=== PATIENT | female | born 1955 | race Caucasian/White ===

== ENCOUNTER 2019-02-13 08:27 | Day surgery (SDC) | payer MEDICAID ==
[2019-02-10 15:17] LABS: BASOPHILS % (AUTO) 0.6 % (0-1); EOSINOPHILS % (AUTO) 0.4 % (0-6); LYMPHOCYTES # (AUTO) 2.1 X10'3 (1.1-4.8); LYMPHOCYTES % (AUTO) 31.8 % (21-51); MEAN CORPUSCULAR HEMOGLOBIN 29.7 PG (27.0-31.0); MEAN CORPUSCULAR HGB CONC 33.1 g/dL (33.0-36.5); MEAN CORPUSCULAR VOLUME 89.7 FL (78-98); MEAN PLATELET VOLUME 7.5 FL (7.4-10.4); MONOCYTES # (AUTO) 0.6 X10'3 (0-0.9); MONOCYTES % (AUTO) 8.4 % (2-12); NEUTROPHILS # (AUTO) 3.9 X10'3 (1.8-7.7); NEUTROPHILS % (AUTO) 58.8 % (42-75); PRE OP HEMATOCRIT 39.7 % (35.0-45.0); PRE OP HEMOGLOBIN 13.2 g/dL (12.0-16.0); PRE OP PLATELET COUNT 270 X10'3 (140-440); RED BLOOD COUNT 4.43 X10'6 (4.20-5.60)
[2019-02-10 15:31] LABS: ALBUMIN 3.4 G/DL (3.4-5.0); ALKALINE PHOSPHATASE 64 IU/L (46-116); BLOOD UREA NITROGEN 13 MG/DL (7-18); BUN/CREATININE RATIO 21.7 (6.6-38.0); CALCIUM 8.6 MG/DL (8.5-10.1); CHLORIDE 108 MMOL/L (99-107); PRE OP ALT 32 U/L (30-65); PRE OP ANION GAP 3 (8-16); PRE OP AST 17 U/L (10-37); PRE OP BILIRUB, TOTAL 0.2 MG/DL (0.0-1.0); PRE OP GLUCOSE 94 MG/DL (70-104); PRE OP POTASSIUM 3.8 MMOL/L (3.4-5.1); PRE OP SODIUM 142 MMOL/L (135-145); TOTAL CARBON DIOXIDE 30.8 MMOL/L (24-32); TOTAL PROTEIN 6.9 G/DL (6.4-8.2); eGFR > 90 ML/MIN
[2019-02-13] VITALS (8 sets, daily range): BP systolic 118–150; BP diastolic 70–89
[~2019-02-13] VITALS: Ht 154.9 cm; Wt 61.9 kg
[~2019-02-13 08:27] MED LIST: BUPIVAcaine/PF 2.5mg/ml (0.25%) 10ml vial ONE; LIDOcaine 1% 30ml preserv. free vial ONE; NO HOME MEDS; cefazolin/dext.iso 2gm/100 ML IV ONE; famotidine 20mg tablet PO ONE; ringers solution, lacted 1,000 ML IV SCH
[2019-02-13] MEDS ORDERED: fentaNYL/PF 50MCG/1 ML 2ML syringe ONE (11:03)
[2019-02-13] MEDS ORDERED: MIDAZolam 5mg/5ml vial ONE (11:03)
[2019-02-13] MEDS ORDERED: ketorolac trometh. 30mg/ml inj. ONE (11:38)
--- NOTE | 2019-02-13 11:40 | NUR ---
Received from OR via , accompanied by Anesthesiologist DR RUIZ and report given by Anesthesiolgist. AWAKENS TO VOICE. VITALS STABLE. DRESSINGS DI. AURY PAIN.
--- NOTE | 2019-02-13 12:50 | NUR ---
AWAKE AND ORIENTED. VITALS STABLE. DRESSINGS DI. HOME WITH FAMILY AT THIS TIME.
== END 2019-02-13 12:50 | disposition home or self-care (01) ==
LOC: PAS 08:27
PROVIDERS: ATTEND Orthopaedic Surgery Hand Surgery
DX: D48.1 Neoplasm of uncertain behavior of connective and other soft tissue (principal); M67.442 Ganglion, left hand; M19.042 Primary osteoarthritis, left hand; M19.041 Primary osteoarthritis, right hand; Z88.8 Allergy status to other drugs, medicaments and biological substances; Z88.5 Allergy status to narcotic agent; Z87.891 Personal history of nicotine dependence; Z79.899 Other long term (current) drug therapy; Z90.49 Acquired absence of other specified parts of digestive tract; Z98.51 Tubal ligation status; Z98.890 Other specified postprocedural states
CPT/HCPCS: 26113; 26116; 26160; 36415; 80053; 82948; 85025; 93005; J1885; J2001; J2250; J3010; J3490; J7120; A4215; A4618; A7000